=== PATIENT | male | born 1975 | race Caucasian/White ===

== ENCOUNTER 2019-06-12 04:16 | Emergency (ER) | payer SELFPAY ==
[2019-06-12] MEDS ORDERED: Lorazepam 1 MG TAB ONE (04:49)
[2019-06-12 05:03] LABS: Cocaine Metabolite Screen Not Detected (NotDetected); Methamphetamine Detected (NotDetected); Phencyclidine (PCP) Not Detected (NotDetected); THC/Cannabinoid Screen Detected (NotDetected)
[2019-06-12 05:04] LABS: Amphetamine Detected (NotDetected); Barbiturates Screen Not Detected (NotDetected); Benzodiazepine Screen Not Detected (NotDetected); Medtox Control Line Valid? VALID (VALID); Methadone Not Detected (NotDetected); Opiate Screen Not Detected (NotDetected); Oxycodone Screen Not Detected (NotDetected); Tricyclic Screen Not Detected (NotDetected)
[2019-06-12 05:12] LABS: #Basophils 0.1 thou/uL (0.0-0.2); #Eosinphils 0.1 thou/uL (0.0-0.7); #Lymphocytes 1.6 thou/uL (1.20-3.40); #Monocytes 0.6 thou/uL (0.11-0.59); #Neutrophils 6.9 thou/uL (1.40-6.50); %Basophils 0.6 % (0.0-1.0); %Eosinophils 0.6 % (0.0-10.0); %Lymphocytes 17.6 % (21.0-51.0); %Monocytes 6.9 % (0.0-10.0); %Neutrophils 74.3 % (42.0-75.0); Hemoglobin 16.7 g/dL (14.0-18.0); Mean Corpuscular HGB CONC 33.3 g/dL (32.0-36.0); Mean Corpuscular Hemoglobin 30.6 pg (27.0-31.0); Mean Corpuscular Volume 91.9 fL (78.0-98.0); Mean Platelet Volume 8.2 fL (7.4-10.4); Platelet Count 226 thou/uL (130-400); RBC Distribution Width 11.9 % (11.5-14.5); Red Blood Cell (RBC) Count 5.45 mill/uL (4.70-6.10); White Blood Cell (WBC) Count 9.3 thou/uL (4.8-10.8)
[2019-06-12 05:24] LABS: Albumin 4.7 g/dL (3.5-5.0); Calcium 9.7 mg/dL (7.8-10.44); Chloride 104 mmol/L (98-107); Globulin 3.3 g/dL (2.4-3.5); Glucose 109 mg/dL (70-105); Potassium 3.8 mmol/L (3.5-5.1); Sodium 137 mmol/L (136-145)
[2019-06-12 06:27] LABS: ALT (SGPT) 17 U/L (8-55); AST (SGOT) 19 U/L (5-34); Alkaline Phosphatase 107 U/L (40-110); BUN (Urea Nitrogen) 18 mg/dL (8.9-20.6); Bilirubin, Total 0.5 mg/dL (0.2-1.2); Calc. Creatinine Clearance 0 mL/min (70-130); Carbon Dioxide 21 mmol/L (22-29); Estimated GFR-MDRD 74
[2019-06-12 06:47] LABS: Anion Gap 16 mmol/L (10-20)
--- NOTE | 2019-06-12 07:46 | RAD ---
EXAM: Chest PA and lateral: HISTORY: Cough. Pain. COMPARISON: None FINDINGS: Heart: Normal cardiac silhouette Aorta: Unremarkable Pulmonary vessels: Normal Costophrenic angles: Costophrenic angles are clear. Lungs: No consolidation or masses. Nonspecific interstitial prominence. Correlate for infiltrate. Pneumothorax: No pneumothorax Osseous structures: No osseous abnormalities IMPRESSION: Nonspecific interstitial prominence. Correlate for infiltrate.
== END 2019-06-12 05:35 | disposition home or self-care (01) ==
LOC: MADERS 04:16
DX: F15.90 Other stimulant use, unspecified, uncomplicated (principal); R07.89 Other chest pain; F17.210 Nicotine dependence, cigarettes, uncomplicated
CPT/HCPCS: 71046; 80053; 80306; 84484; 85025; 93005

== ENCOUNTER 2020-10-14 12:39 | Emergency (ER) | payer SELFPAY ==
[2020-10-14] MEDS ORDERED: Ondansetron ODT 4 MG TAB ONE (13:27)
[2020-10-15 13:30] LABS: SARS-CoV-2 PCR by NAA Not Detected (NotDetected)
== END 2020-10-14 13:30 | disposition home or self-care (01) ==
LOC: MADERS 12:39
DX: J20.8 Acute bronchitis due to other specified organisms (principal); R11.2 Nausea with vomiting, unspecified; Z20.822 Contact with and (suspected) exposure to COVID-19; F17.210 Nicotine dependence, cigarettes, uncomplicated; Z71.6 Tobacco abuse counseling
CPT/HCPCS: 99406; Q0162; U0003; U0005

== ENCOUNTER 2021-07-22 14:50 | Emergency (ER) | payer OTHER, SELFPAY ==
[~2021-07-22 14:50] MED LIST: Iopamidol 370 76% 100 ML VIAL ONE; Sodium Chloride 0.9% 1,000 ML BAG ONE
[2021-07-22] MEDS ORDERED: Morphine 4 MG/ML VIAL ONE ×2 (15:13→18:02)
[2021-07-22] MEDS ORDERED: Ondansetron PF 4 MG/2 ML Vial ONE ×2 (15:14→18:02)
[2021-07-22 17:02] LABS: #Basophils 0.1 thou/uL (0.0-0.2); #Eosinphils 0.2 thou/uL (0.0-0.7); #Lymphocytes 2.8 thou/uL (1.20-3.40); #Monocytes 0.8 thou/uL (0.11-0.59); #Neutrophils 6.8 thou/uL (1.40-6.50); %Basophils 1.2 % (0.0-1.0); %Eosinophils 1.7 % (0.0-10.0); %Lymphocytes 26.3 % (21.0-51.0); %Monocytes 7.2 % (0.0-10.0); %Neutrophils 63.6 % (42.0-75.0); Hemoglobin 15.3 g/dL (14.0-18.0); Mean Corpuscular HGB CONC 32.6 g/dL (32.0-36.0); Mean Corpuscular Hemoglobin 29.3 pg (27.0-31.0); Mean Corpuscular Volume 89.9 fL (78.0-98.0); Mean Platelet Volume 9.8 fL (7.4-10.4); Platelet Count 223 thou/uL (130-400); Red Blood Cell (RBC) Count 5.22 mill/uL (4.70-6.10); White Blood Cell (WBC) Count 10.7 thou/uL (4.8-10.8)
[2021-07-22 17:05] LABS: ALT (SGPT) 11 U/L (8-55); AST (SGOT) 19 U/L (5-34); Albumin 4.5 g/dL (3.5-5.0); Alkaline Phosphatase 82 U/L (40-110); Anion Gap 21 mmol/L (10-20); BUN (Urea Nitrogen) 20 mg/dL (8.9-20.6); Bilirubin, Total 0.7 mg/dL (0.2-1.2); Calc. Creatinine Clearance 0 mL/min (70-130); Calcium 10.1 mg/dL (7.8-10.44); Carbon Dioxide 19 mmol/L (22-29); Chloride 103 mmol/L (98-107); Globulin 3.2 g/dL (2.4-3.5); Glucose 91 mg/dL (70-105); Magnesium 1.7 mg/dL (1.6-2.6); Potassium 3.8 mmol/L (3.5-5.1); Protein, Total 7.7 g/dL (6.0-8.3); Sodium 139 mmol/L (136-145)
== END 2021-07-22 18:13 | disposition short-term general hospital (02) ==
LOC: MADERS 14:50
DX: S92.061A Displaced intraarticular fracture of right calcaneus, initial encounter for closed fracture (principal); S92.002A Unspecified fracture of left calcaneus, initial encounter for closed fracture; S92.331A Displaced fracture of third metatarsal bone, right foot, initial encounter for closed fracture; S92.341A Displaced fracture of fourth metatarsal bone, right foot, initial encounter for closed fracture; S32.039A Unspecified fracture of third lumbar vertebra, initial encounter for closed fracture; F17.210 Nicotine dependence, cigarettes, uncomplicated; W19.XXXA Unspecified fall, initial encounter
CPT/HCPCS: 29515; 36415; 70450; 71260; 72100; 72125; 74177; 80053; 83735; 85025; 86850; 86900; 86901; 96361; 96374; 96375; 96376; J2270; J2405; J7050; Q9967